=== PATIENT | male | born 1960 | race American Indian/Alaskan Native ===

== ENCOUNTER 2018-05-22 18:45 | Emergency (ER) | payer BC ==
[2018-05-22 18:45] VITALS: BMI 37.3
[2018-05-22 19:05] VITALS: TEMP 98
[2018-05-22] MEDS ORDERED: Lidocaine 5% Patch TD ONE (19:44)
--- NOTE | 2018-05-22 19:52 | ED PDOC ---
Arrival/HPI - General Chief Complaint: Trauma Time Seen by Provider: 05/22/18 18:47 - Critical Care Narrative Critical Care (Text): 58 y/o M w/ h/o HTN presenting to the ED for neck and shoulder pain s/p fall 4 days ago. Patient states he was at work when he sustained a mechanical fall landing on the left side of his body, sustaining a direct collision to his left shoulder. He reports self-medicating with Aleve which had been alleviating his pain, but reports needing to take the Aleve more frequently to sustain adequate pain control. The patient states he had been having difficulty raising his left arm over his head due to shoulder pain. He also reports neck pain that has worsened attributing his chronic neck pain as a result of an accident he had in January He denies chest pain, dizziness, nausea/emesis, fever, chills, abdominal pain, syncopal episodes or numbness/tingling to the extremities. He denies being on any anticoagulants at this time. - History of Present Illness Time/Duration: Other (4 days) Symptom Onset: Gradual Symptom Course: Intermittent Quality: Aching Severity Level: Moderate Context: Home, Work Past Medical History - Provider Review Nursing Documentation Reviewed: Yes - Travel History Have you recently traveled outside [place] w/in the past 3 mons?: No - Infectious Disease Hx of Infectious Diseases: None - Cardiac Hx Hypertension: Yes - Pulmonary Hx Respiratory Disorders: No - Neurological Hx Neurological Disorder: No - HEENT Hx HEENT Disorder: No - Renal Hx Kidney Stones: Yes (4yrs ago with stents) - Endocrine/Metabolic Hx Endocrine Disorders: No - Hematological/Oncological Hx Blood Disorders: No - Integumentary Hx Dermatological Disorder: No - Musculoskeletal/Rheumatological Hx Musculoskeletal Disorders: Yes Hx Back Pain: Yes - Gastrointestinal Hx Gastrointestinal Disorders: No - Genitourinary/Gynecological Hx Genitourinary Disorders: No - Psychiatric Hx Psychophysiologic Disorder: No Hx Substance Use: No - Anesthesia Hx Anesthesia: Yes Hx Anesthesia Reactions: No Hx Malignant Hyperthermia: No Family/Social History - Physician Review Nursing Documentation Reviewed: Yes Family/Social History: No Known Family HX Smoking Status: Heavy Smoker > 10 Cigarettes Daily Hx Alcohol Use: Yes Hx Substance Use: No Allergies/Home Meds Allergies/Adverse Reactions: Allergies No Known Allergies Allergy (Verified 07/21/15 19:34) Review of Systems - Physician Review All systems were reviewed & negative as marked: Yes - Review of Systems Respiratory: absent: SOB Cardiovascular: absent: Chest Pain, Palpitations, MORENO Musculoskeletal: Neck Pain, Myalgias. absent: Arthralgias, Back Pain, Joint Swelling Neurological: absent: Headache, Dizziness, Focal Weakness, Gait Changes Physical Exam Vital Signs Reviewed: Yes Vital Signs Temp Pulse Resp BP Pulse Ox 05/22/18 18:58 98 F 87 18 171/100 H 96 Temperature: Afebrile Blood Pressure: Normal Pulse: Regular Respiratory Rate: Normal Appearance: Positive for: Well-Appearing, Non-Toxic, Comfortable Mental Status: Positive for: Alert and Oriented X 3 - Systems Exam Head: Present: Atraumatic, Normocephalic Pupils: Present: PERRL Extroacular Muscles: Present: EOMI Conjunctiva: Present: Normal Mouth: Present: Moist Mucous Membranes Neck: Present: Normal Range of Motion, Paraspinal Tenderness. No: MIDLINE TENDERNESS Respiratory/Chest: Present: Clear to Auscultation, Good Air Exchange. No: Respiratory Distress Cardiovascular: Present: Regular Rate and Rhythm, Normal S1, S2 Abdomen: Present: Normal Bowel Sounds. No: Tenderness, Distention, Peritoneal Signs Upper Extremity: Present: Normal Inspection, NORMAL PULSES, Tenderness (tenderness to palpation of the left shoulder), Neurovascularly Intact, Capillary Refill < 2s. No: Edema, Erythema Lower Extremity: Present: Normal Inspection, NORMAL PULSES. No: Edema, CALF TENDERNESS Neurological: Present: GCS=15, CN II-XII Intact, Speech Normal Skin: Present: Warm, Dry, Normal Color. No: Rashes Psychiatric: Present: Alert, Oriented x 3, Normal Insight, Normal Concentration Medical Decision Making ED Course and Treatment: Impression 58 y/o M w/ neck and L shoulder pain s/p mechanical fall Differential Diagnosis Includes But Is Not Limited To: Bursitis Rotator Cuff Tear Adhesive Capsulitis Plan --Lidocane Patch --Toradol --XR cervical spine --XR L shoulder --Reassess & disposition Progress Notes 05/22/18 22:11 XR shoulder shows no evidence of fracture along with XR of cervical spine unremarkable for fracture or dislocations. Patient updated on findings and reports complete relief of shoulder pain. Return protocol given with scripts provided. Patient demonstrates understanding and will follow up in clinic. He is stable for discharge. - RAD Interpretation Radiology Orders: 10/27/18 19:45 CERVICAL SPINE >18YR W/OBLIQUE [RAD] Stat Disposition/Present on Arrival - Present on Arrival Any Indicators Present on Arrival: No History of DVT/PE: No History of Uncontrolled Diabetes: No Urinary Catheter: No History of Decub. Ulcer: No History Surgical Site Infection Following: None - Disposition Have Diagnosis and Disposition been Completed?: Yes Diagnosis: Neck pain, Shoulder pain, left Disposition: HOME/ ROUTINE Disposition Time: 21:30 Patient Plan: Discharge Patient Problems: Current Active Problems Problem Status Onset Neck pain Acute Shoulder pain, left Acute Condition: IMPROVED Discharge Instructions (ExitCare): Chronic Neck Pain (DC), Shoulder Pain (DC) Additional Instructions: All medical record entries made by the Scribe were at my direction and personally dictated by me. I have reviewed the chart and agree that the record accurately reflects my personal performance of the history, physical exam, medical decision making, and the department course for this patient. I have also personally directed, reviewed, and agree with the discharge instructions and disposition. Prescriptions: Cyclobenzaprine [Cyclobenzaprine HCl] 10 mg PO PRN PRN #4 tab PRN Reason: Muscle Spasm Ibuprofen [Motrin] 600 mg PO Q6H #24 tab Lidocaine 5% [Lidoderm] 1 ea TD Q12H #5 patch Referrals: Jil Monge MD [Medical Doctor] - Follow up with primary [facility] [place]] - Follow up with primary Forms: [employer] (Filipino), WORK NOTE
[2018-05-22 20:26] VITALS: RESP 16
[2018-05-22 22:14] VITALS: BP 131/80; PULSE 74; O2SAT 100
--- NOTE | 2018-05-23 10:26 | RAD ---
Date of service: 05/22/2018 PROCEDURE: Radiographs of the Left Shoulder HISTORY: shoulder pain s/p fall COMPARISON: No prior. FINDINGS: BONES: Bone alignment and mineralization are normal. There is no acute displaced fracture or bone destruction. JOINTS: Mild degenerative osteoarthrosis in the AC joint. The glenohumeral joint is normal. SOFT TISSUES: Normal. OTHER FINDINGS: None. IMPRESSION: No acute fracture or dislocation.
--- NOTE | 2018-05-23 10:27 | RAD ---
Date of service: 05/22/2018 PROCEDURE: Cervical Spine Radiographs. HISTORY: Pain. COMPARISON: None available. FINDINGS: BONES: There is normal alignment of the cervical vertebral bodies. There is straightening of the cervical spine with loss of normal cervical lordosis. Vertebral height is normal. Bone mineralization is normal. There is no acute fracture or traumatic anterior listhesis. The craniocervical junction is normal. The atlantoaxial joint normal. DISC SPACES: There is multilevel degenerative disc disease from C4-5 to C6-7 with anterior osteophytes, reduced disc heights and multilevel facet arthropathy, worse at C6-7. There is moderate bilateral neural foraminal narrowing at C6-7. SOFT TISSUES: Normal. No prevertebral soft tissue swelling. OTHER FINDINGS: None. IMPRESSION: No acute fracture or spondylolisthesis. Multilevel degenerative disc disease, worse at C6-7. Straightening of the cervical spine may be positional or related to muscle spasm.
== END 2018-05-22 22:14 | disposition home or self-care (01) ==
LOC: ED 18:45
DX: M54.2 Cervicalgia (principal); M25.512 Pain in left shoulder
CPT/HCPCS: 72050; 73030; 96372; 99285; J1885